=== PATIENT | male | born 2000 | race African-American/Black ===

== ENCOUNTER 2019-09-18 19:07 | Emergency (ER) | payer MEDICAID, SELFPAY ==
[2019-09-18] MEDS ORDERED: Adacel (T-DAP) 0.5 ML SYRINGE ONE (19:24)
[2019-09-18] MEDS ORDERED: Amoxicillin/Potassium Clav 875 MG TAB ONE (19:47)
[2019-09-18] MEDS ORDERED: Rabies Vaccine Human 2.5 UNITS VIAL ONE ×2 (19:49→19:50)
== END 2019-09-18 20:45 | disposition home or self-care (01) ==
LOC: NAV ERS 19:07
DX: S81.851A Open bite, right lower leg, initial encounter (principal); S81.831A Puncture wound without foreign body, right lower leg, initial encounter; S80.811A Abrasion, right lower leg, initial encounter; W54.0XXA Bitten by dog, initial encounter
CPT/HCPCS: 90376; 90471; 90472; 90675; 90715; 96372